=== PATIENT | male | born 1985 | race Caucasian/White ===

== ENCOUNTER 2017-08-29 23:48 | Emergency (ER) | payer OTHER ==
[~2017-08-29] VITALS: Ht 180.3 cm; Wt 95.3 kg
[2017-08-30 00:16] VITALS: BP 146/88
--- NOTE | 2017-08-30 00:22 | NUR ---
Patient ambulated to bed OF2 to be evaluated as fast track by Dr. Millard. RN evaluating patient.
--- NOTE | 2017-08-30 00:37 | NUR ---
PATIENT PRESENTS TO ED WITH C/O SORE THROAT, ETOH . PT DENIES N/V/D; SKIN IS PINK/WARM/DRY; AAOX4 WITH EVEN AND STEADY GAIT; LUNGS CLEAR BL; HR EVEN AND REGULAR; PT DENIES ANY FEVER, CP, SOB, OR COUGH AT THIS TIME; PATIENT STATES PAIN OF 7/10 AT THIS TIME; VSS; PATIENT POSITIONED FOR COMFORT; HOB ELEVATED; BEDRAILS UP X2; BED DOWN. ER MD MADE AWARE OF PT STATUS.
[2017-08-30] MEDS ORDERED: KETOROLAC 60 MG/2 ML VIAL IM ONE (00:55)
[2017-08-30] MEDS ORDERED: methylPREDNISolone SS 125 MG in WATER STERILE 2 ML IM ONE (00:55)
[2017-08-30] MEDS ORDERED: cefTRIAXone 1,000 MG in LIDOCAINE 1% ***ER ONLY *** 2.1 ML IM ONE (00:55)
--- NOTE | 2017-08-30 01:32 | NUR ---
Patient discharged with v/s stable. Written and verbal after care instructions given and explained. Patient alert, oriented and verbalized understanding of instructions. Ambulatory with steady gait. All questions addressed prior to discharge. ID band removed. Patient advised to follow up with PMD. Rx of CLEOCIN 300MG, PREDNISONE 20MG given. Patient educated on indication of medication including possible reaction and side effects. Opportunity to ask questions provided and answered.
[2017-08-30 01:33] VITALS: BP 132/72
== END 2017-08-30 01:32 | disposition home or self-care (01) ==
LOC: MED 23:48
DX: J03.90 Acute tonsillitis, unspecified (principal); Z71.6 Tobacco abuse counseling
CPT/HCPCS: 96372; 99284; J0696; J1885; J2001; J2930

== ENCOUNTER 2017-08-30 23:30 | Emergency (ER) | payer OTHER ==
[~2017-08-30] VITALS: Ht 180.3 cm; Wt 98.9 kg
[2017-08-30 23:38] VITALS: BP 140/90
--- NOTE | 2017-08-31 00:24 | NUR ---
32 Y/O M W/C/O SORETHROAT, FOR 2 WEEKS, LEFT WRIST PAIN, FOR 2 MONTHS, PT DENIES ANY TRAUMA NOR INJURY, PT SEEN YESTERDAY AND SENT HOME WITH ANTIBIOTICS AND PAIN MEDS BUT PT STATES HE DIDNT HAVE A RIDE TO GO FILL MEDS. NO S/S OF DISTRESS NOTED. ER, MADE AWARE.
--- NOTE | 2017-08-31 00:49 | NUR ---
PT. WENT TO XRAY
--- NOTE | 2017-08-31 00:53 | NUR ---
PT. BACK FROM XRAY
[2017-08-31] MEDS ORDERED: oxyCODONE/APAP 5/325 MG 1 TAB TAB PO ONE (02:15)
--- NOTE | 2017-08-31 02:36 | NUR ---
Patient discharged with v/s stable. Written and verbal after care instructions given and explained. Patient alert, oriented and verbalized understanding of instructions. Ambulatory with steady gait. All questions addressed prior to discharge. ID band removed. Patient advised to follow up with PMD. Rx of NORCO 5/325MG given. Patient educated on indication of medication including possible reaction and side effects. Opportunity to ask questions provided and answered.
[2017-08-31 02:37] VITALS: BP 126/81
== END 2017-08-31 02:36 | disposition home or self-care (01) ==
LOC: MED 23:30
DX: S52.502D Unspecified fracture of the lower end of left radius, subsequent encounter for closed fracture with routine healing (principal); S52.202D Unspecified fracture of shaft of left ulna, subsequent encounter for closed fracture with routine healing; J02.9 Acute pharyngitis, unspecified; X58.XXXD Exposure to other specified factors, subsequent encounter
CPT/HCPCS: 73110; 99284

== ENCOUNTER 2017-12-31 18:27 | Emergency (ER) | payer MEDICAID, OTHER ==
[~2017-12-31] VITALS: Ht 180.3 cm; Wt 100.2 kg
[2017-12-31 18:39] VITALS: BP 125/72
--- NOTE | 2017-12-31 18:44 | NUR ---
PT AMBULATED TO GABO
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
--- NOTE | 2017-12-31 18:52 | NUR ---
Patient being evaluated by physician at bedside.
[2017-12-31 19:05] VITALS: BP 125/72
--- NOTE | 2017-12-31 19:05 | NUR ---
Patient discharged with v/s stable. Written and verbal after care instructions given and explained.Patient alert, oriented and verbalized understanding of instructions. Ambulatory with steady gait. All questions addressed prior to discharge. ID band removed. Patient advised to follow up with PMD. Rx of BACTRIUM DS, MUPIROCIN 2% TOPICAL OINTMENT given. Patient educated on indication of medication including possible reaction and side effects. Opportunity to ask questions provided and answered.
== END 2017-12-31 19:05 | disposition home or self-care (01) ==
LOC: MED 18:27
DX: L01.00 Impetigo, unspecified (principal); I10 Essential (primary) hypertension
CPT/HCPCS: 99283

== ENCOUNTER 2018-01-19 10:56 | Emergency (ER) | payer MEDICAID, OTHER ==
[~2018-01-19] VITALS: Ht 180.3 cm; Wt 98.9 kg
[2018-01-19 11:01] VITALS: BP 134/79
--- NOTE | 2018-01-19 11:01 | NUR ---
generalized abd pain with n/v/d x 3 days . DENIES N/V/D; SKIN IS PINK/WARM/DRY; AAOX4 WITH EVEN AND STEADY GAIT; LUNGS CLEAR BL; HR EVEN AND REGULAR; PT DENIES ANY FEVER, CP, SOB, OR COUGH AT THIS TIME; PATIENT STATES PAIN OF 10/10 AT THIS TIME; VSS; PATIENT POSITIONED FOR COMFORT; HOB ELEVATED; BEDRAILS UP X2; BED DOWN. ER MD MADE AWARE OF PT STATUS.
--- NOTE | 2018-01-19 11:05 | NUR ---
PT AMBULATED TO BED 12
[2018-01-19] MEDS ORDERED: KETOROLAC 30 MG/ML VIAL IVP ONE (11:40)
[2018-01-19] MEDS ORDERED: NACL 0.9% 1,000 ML IV ONE (11:40)
[2018-01-19] MEDS ORDERED: ONDANSETRON 4 MG/2 ML VIAL IVP ONE (11:40)
--- NOTE | 2018-01-19 11:53 | NUR ---
PT TAKEN TO XRAY
--- NOTE | 2018-01-19 12:04 | NUR ---
PT RETURNED FROM XRAY
[2018-01-19 12:08] LABS: BASOPHILS % (AUTO) 0.6 % (0.0-2.0); EOSINOPHILS # (AUTO) 0.3 K/uL (0-0.4); EOSINOPHILS % (AUTO) 5.1 % (0.0-4.0); HEMATOCRIT 29.3 % (36-52); HEMOGLOBIN 9.1 g/dL (12.0-18.0); LYMPHOCYTES # (AUTO) 0.9 K/uL (2.0-11.5); LYMPHOCYTES % (AUTO) 16.4 % (20.5-51.1); MEAN CORPUSCULAR HEMOGLOBIN 22 pg (27-31); MEAN CORPUSCULAR HGB CONC 31 g/dL (33-37); MEAN CORPUSCULAR VOLUME 72.1 fL (80-94); MONOCYTES % (AUTO) 17.4 % (1.7-9.3); NEUTROPHILS # (AUTO) 3.5 K/uL (1.8-7.7); NEUTROPHILS % (AUTO) 60.5 % (42.2-75.2); PLATELET COUNT (AUTO) 157 K/uL (140-450); RED BLOOD CELL COUNT(AUTO) 4.05 MIL/uL (4.20-6.10); RED CELL DISTRIBUTION WIDTH 18.8 % (11.6-13.7); WHITE BLOOD COUNT (AUTO) 5.7 K/uL (4.8-10.8)
[2018-01-19 12:28] LABS: ANION GAP 14.2 (8-16); CARBON DIOXIDE 23.2 mmol/L (21-32); CHLORIDE 104 mmol/L (98-107); CREATININE 0.7 mg/dL (0.7-1.3); GFR ARICAN-AMERICAN 167 mL/min (>90); GLUCOSE 113 mg/dL (74-106); POTASSIUM 3.4 mmol/L (3.5-5.1); SODIUM SERUM 138 mmol/L (136-145); UREA NITROGEN, BLOOD 8 mg/dL (7-18)
[2018-01-19 12:44] LABS: ALBUMIN 3.5 g/dL (3.4-5.0); ASPARTATE AMINOTRANSFERASE 53 U/L (15-37); TOTAL BILIRUBIN 0.8 mg/dL (0.0-1.0)
[2018-01-19 12:45] LABS: ACETAMINOPHEN < 0.5 ug/ml (10-30); SALICYLATE < 2.8 mg/dL (2.8-20.0)
[2018-01-19] MEDS ORDERED: fentaNYL 0.05 MG/ML VIAL IVP ONE (13:10)
[2018-01-19 13:22] LABS: BARBITURATE, URINE NEG. ng/ml (NEG <=200); BENZODIAZEPINE, URINE NEG. ng/mL (NEG <=200); CANNABINOID, URINE NEG. ng/mL (NEG <=50); COCAINE, URINE NEG. ng/mL (NEG <=300); OPIATE, URINE NEG. ng/mL (NEG <=2000); PHENCYCLIDINE SCREEN,URINE NEG. ng/mL (NEG <=25)
--- NOTE | 2018-01-19 13:50 | NUR ---
PT RESTING IN BED, AT BEDSIDE. PT STATED PAIN RELIVED.
[2018-01-19 14:10] VITALS: BP 130/75
--- NOTE | 2018-01-19 14:10 | NUR ---
Patient discharged with v/s stable. Written and verbal after care instructions given and explained. Patient alert, oriented and verbalized understanding of instructions. Ambulatory with steady gait. All questions addressed prior to discharge. ID band removed. Patient advised to follow up with PMD. Rx of ZOFRAN AND TRAMADOL HYDROCHLORIDE given. Patient educated on indication of medication including possible reaction and side effects. Opportunity to ask questions provided and answered.
== END 2018-01-19 14:10 | disposition home or self-care (01) ==
LOC: MED 10:56
DX: T62.91XA Toxic effect of unspecified noxious substance eaten as food, accidental (unintentional), initial encounter (principal); F15.90 Other stimulant use, unspecified, uncomplicated; I10 Essential (primary) hypertension; Y92.89 Other specified places as the place of occurrence of the external cause
CPT/HCPCS: 36415; 74022; 80053; 80305; 83690; 85025; 96361; 96374; 96375; 99285; G0480; G0482; J1885; J2405; J7030

== ENCOUNTER 2018-02-04 09:26 | Emergency (ER) | payer OTHER ==
[~2018-02-04] VITALS: Ht 180.3 cm; Wt 107.0 kg
[2018-02-04 09:29] VITALS: BP 133/78
[2018-02-04] MEDS ORDERED: ACETAMINOPHEN EXTRA STRENGTH 500 MG TAB PO ONE (10:10)
[2018-02-04] MEDS ORDERED: NACL 0.9% 2,000 ML IV SCH (10:53)
[2018-02-04] MEDS ORDERED: KETOROLAC 15 MG/ML VIAL IVP ONE (10:55)
[2018-02-04 12:23] LABS: BASOPHILS # (AUTO) 0.1 K/uL (0.00-0.22); EOSINOPHILS % (AUTO) 0.1 % (0.0-4.0); HEMATOCRIT 26.8 % (36-52); HEMOGLOBIN 8.4 g/dL (12.0-18.0); LYMPHOCYTES # (AUTO) 0.4 K/uL (2.0-11.5); LYMPHOCYTES % (AUTO) 3.9 % (20.5-51.1); MEAN CORPUSCULAR HEMOGLOBIN 22 pg (27-31); MEAN CORPUSCULAR HGB CONC 31 g/dL (33-37); MEAN CORPUSCULAR VOLUME 71.2 fL (80-94); MONOCYTES % (AUTO) 11.3 % (1.7-9.3); NEUTROPHILS # (AUTO) 7.6 K/uL (1.8-7.7); NEUTROPHILS % (AUTO) 83.7 % (42.2-75.2); PLATELET COUNT (AUTO) 139 K/uL (140-450); RED BLOOD CELL COUNT(AUTO) 3.77 MIL/uL (4.20-6.10); RED CELL DISTRIBUTION WIDTH 19.2 % (11.6-13.7); WHITE BLOOD COUNT (AUTO) 9.1 K/uL (4.8-10.8)
[2018-02-04 12:23] LABS: APPEARANCE,URINE CLEAR (CLEAR); BILIRUBIN,URINE NEGATIVE (NEGATIVE); BLOOD, URINE NEGATIVE (NEGATIVE); COLOR,URINE YELLOW (YELLOW); LEUKOCYTE ESTERASE ,URINE NEGATIVE (NEGATIVE); NITRITE, URINE NEGATIVE (NEGATIVE); PH,URINE 8.5 (5.0-9.0); UGLUCOSE NEGATIVE (NEGATIVE)
[2018-02-04 12:29] LABS: BARBITURATE, URINE NEG. ng/ml (NEG <=200); BENZODIAZEPINE, URINE NEG. ng/mL (NEG <=200); CANNABINOID, URINE NEG. ng/mL (NEG <=50); COCAINE, URINE NEG. ng/mL (NEG <=300); OPIATE, URINE NEG. ng/mL (NEG <=2000); PHENCYCLIDINE SCREEN,URINE NEG. ng/mL (NEG <=25)
[2018-02-04 12:35] LABS: RBC,URINE NONE SEEN /HPF (0-5); WBC,URINE 0-5 (RARE) /HPF (0-5)
[2018-02-04 12:40] LABS: ANION GAP 10.8 (8-16); CARBON DIOXIDE 23.9 mmol/L (21-32); CREATININE 0.7 mg/dL (0.7-1.3); POTASSIUM 3.7 mmol/L (3.5-5.1)
[2018-02-04 12:48] LABS: ALBUMIN 3.1 g/dL (3.4-5.0); TOTAL BILIRUBIN 0.8 mg/dL (0.0-1.0)
[2018-02-04 14:25] VITALS: BP 146/74
== END 2018-02-04 14:25 | disposition home or self-care (01) ==
LOC: MED 09:26
DX: B34.9 Viral infection, unspecified (principal); D50.9 Iron deficiency anemia, unspecified; I10 Essential (primary) hypertension
CPT/HCPCS: 36415; 71045; 73610; 80053; 80305; 81001; 82550; 83540; 83605; 84484; 85025; 87040; 87086; 93005; 99285; J1885; Q0092

== ENCOUNTER 2018-02-09 10:13 | Emergency (ER) | payer OTHER ==
[~2018-02-09] VITALS: Ht 180.3 cm; Wt 106.1 kg
[2018-02-09 10:31] VITALS: BP 126/77
[2018-02-09 10:52] VITALS: BP 126/77
== END 2018-02-09 10:52 | disposition home or self-care (01) ==
LOC: MED 10:13
DX: J02.9 Acute pharyngitis, unspecified (principal); J40 Bronchitis, not specified as acute or chronic; I10 Essential (primary) hypertension
CPT/HCPCS: 99283

== ENCOUNTER 2018-02-22 16:09 | Emergency (ER) | payer OTHER ==
[~2018-02-22] VITALS: Ht 180.3 cm; Wt 106.6 kg
[2018-02-22 16:29] VITALS: BP 111/78
--- NOTE | 2018-02-22 16:34 | NUR ---
PT AMBULATES BACK TO THE LOBBY
--- NOTE | 2018-02-22 17:20 | NUR ---
PT AMBULATED TO BED 8 BY JULITO
--- NOTE | 2018-02-22 17:22 | NUR ---
pt taken to bed 8.
[2018-02-22 17:30] VITALS: BP 131/55
--- NOTE | 2018-02-22 18:05 | NUR ---
PATIENT LEFT WITHOUT BEING SEEN BY DR. KILPATRICK. PT GOT UP FROM BED AND LEFT OUT OF [facility]. MOTHER ACCOMPANIED HIM. NO FURTHER CARE PROVIDED FOR PATIENT. Addendum: 02/22/18 at 1809 by [facility] PT ELOPED FROM FACILITY.
== END 2018-02-22 18:05 | disposition left against medical advice (07) ==
LOC: MED 16:09
DX: J02.9 Acute pharyngitis, unspecified (principal); R53.1 Weakness; R05 Cough; R11.2 Nausea with vomiting, unspecified; R19.7 Diarrhea, unspecified; R13.10 Dysphagia, unspecified; I10 Essential (primary) hypertension
CPT/HCPCS: 99281

== ENCOUNTER 2018-03-30 01:39 | Emergency (ER) | payer OTHER ==
[~2018-03-30] VITALS: Ht 167.6 cm; Wt 74.8 kg
--- NOTE | 2018-03-30 01:39 | NUR ---
Patient BIBA BLS, transferred to bed 11. RN evaluating patient at bedside.
--- NOTE | 2018-03-30 01:40 | NUR ---
PATIENT PRESENTS TO ED WITH abdominal pain x3 years. PT DENIES N/V/D; SKIN IS PINK/WARM/DRY; AAOX4 WITH EVEN AND STEADY GAIT; LUNGS CLEAR BL; HR EVEN AND REGULAR; PT DENIES ANY FEVER, CP, SOB, OR COUGH AT THIS TIME; PATIENT STATES PAIN OF 9/10 AT THIS TIME; VSS; PATIENT POSITIONED FOR COMFORT; HOB ELEVATED; BEDRAILS UP X1; BED DOWN. ER MD MADE AWARE OF PT STATUS.
[2018-03-30 01:47] VITALS: BP 125/66
[2018-03-30 01:59] LABS: BASOPHILS % (AUTO) 0.5 % (0.0-2.0); EOSINOPHILS # (AUTO) 0.1 K/uL (0-0.4); EOSINOPHILS % (AUTO) 1.1 % (0.0-4.0); HEMATOCRIT 28.8 % (36-52); HEMOGLOBIN 9.1 g/dL (12.0-18.0); LYMPHOCYTES # (AUTO) 1.1 K/uL (2.0-11.5); LYMPHOCYTES % (AUTO) 24.1 % (20.5-51.1); MEAN CORPUSCULAR HEMOGLOBIN 24 pg (27-31); MEAN CORPUSCULAR HGB CONC 32 g/dL (33-37); MEAN CORPUSCULAR VOLUME 74.5 fL (80-94); MONOCYTES # (AUTO) 0.5 K/uL (0.8-1.0); MONOCYTES % (AUTO) 10.3 % (1.7-9.3); NEUTROPHILS # (AUTO) 2.9 K/uL (1.8-7.7); PLATELET COUNT (AUTO) 82 K/uL (140-450); RED BLOOD CELL COUNT(AUTO) 3.86 MIL/uL (4.20-6.10); RED CELL DISTRIBUTION WIDTH 21.2 % (11.6-13.7); WHITE BLOOD COUNT (AUTO) 4.6 K/uL (4.8-10.8)
[2018-03-30 02:09] LABS: ANION GAP 15.6 (8-16); CARBON DIOXIDE 23.7 mmol/L (21-32); CREATININE 0.8 mg/dL (0.7-1.3); POTASSIUM 3.3 mmol/L (3.5-5.1)
[2018-03-30 02:15] LABS: ALBUMIN 3.6 g/dL (3.4-5.0); TOTAL BILIRUBIN 0.9 mg/dL (0.0-1.0)
[2018-03-30] MEDS ORDERED: KETOROLAC 30 MG/ML VIAL IVP ONE (02:30)
[2018-03-30] MEDS ORDERED: KETOROLAC 60 MG/2 ML VIAL IM ONE (02:31)
[2018-03-30] MEDS ORDERED: KETOROLAC 30 MG/ML VIAL ONE (02:32)
[2018-03-30 02:49] VITALS: BP 125/66
== END 2018-03-30 02:49 | disposition home or self-care (01) ==
LOC: MED 01:39
DX: R10.13 Epigastric pain (principal); R11.2 Nausea with vomiting, unspecified; R19.7 Diarrhea, unspecified; R68.83 Chills (without fever); I10 Essential (primary) hypertension
CPT/HCPCS: 36415; 80053; 83690; 85025; 96374; 99284; J1885

== ENCOUNTER 2018-08-30 03:10 | Emergency (ER) | payer OTHER ==
[~2018-08-30] VITALS: Ht 180.3 cm; Wt 111.1 kg
[2018-08-30 03:14] VITALS: BP 140/66
--- NOTE | 2018-08-30 03:15 | NUR ---
ASSUMED CARE OF PT AT THIS TIME. C/O ABDOMINAL PAIN/CHEST PAIN W/ HEMATEMESIS, HEMATURIA, AND BLOOD IN STOOLS X 3 DAYS. PMH CIRRHOSIS, GIB, AND PANCREATITIS. AAOX4 WITH EVEN AND STEADY GAIT; PATIENT STATES PAIN OF 10/10; VSS; PATIENT POSITIONED FOR COMFORT; HOB ELEVATED; BEDRAILS UP X2; BED DOWN. ER MD MADE AWARE OF PT STATUS. WILL CONTINUE TO MONITOR.
--- NOTE | 2018-08-30 03:32 | NUR ---
ER AT BEDSIDE
[2018-08-30] MEDS ORDERED: NACL 0.9% 1,000 ML IV SCH (03:41)
[2018-08-30] MEDS ORDERED: KETOROLAC 30 MG/ML VIAL IVP ONE (03:45)
[2018-08-30] MEDS ORDERED: ONDANSETRON 4 MG/2 ML VIAL IVP ONE (03:45)
[2018-08-30 04:18] LABS: BASOPHILS % (AUTO) 0.5 % (0.0-2.0); HEMATOCRIT 33.9 % (36-52); HEMOGLOBIN 10.8 g/dL (12.0-18.0); LYMPHOCYTES # (AUTO) 0.9 K/uL (2.0-11.5); LYMPHOCYTES % (AUTO) 23.3 % (20.5-51.1); MEAN CORPUSCULAR HEMOGLOBIN 24 pg (27-31); MEAN CORPUSCULAR HGB CONC 32 g/dL (33-37); MEAN CORPUSCULAR VOLUME 74.5 fL (80-94); MONOCYTES # (AUTO) 0.4 K/uL (0.8-1.0); MONOCYTES % (AUTO) 10.8 % (1.7-9.3); NEUTROPHILS # (AUTO) 2.5 K/uL (1.8-7.7); NEUTROPHILS % (AUTO) 64.4 % (42.2-75.2); PLATELET COUNT (AUTO) 81 K/uL (140-450); RED BLOOD CELL COUNT(AUTO) 4.55 MIL/uL (4.20-6.10); RED CELL DISTRIBUTION WIDTH 17.9 % (11.6-13.7); WHITE BLOOD COUNT (AUTO) 3.9 K/uL (4.8-10.8)
[2018-08-30 04:21] LABS: ANION GAP 17.7 (8-16); CARBON DIOXIDE 24.5 mmol/L (21-32); CREATININE 0.8 mg/dL (0.7-1.3); POTASSIUM 3.2 mmol/L (3.5-5.1)
[2018-08-30 04:26] LABS: ALBUMIN 3.7 g/dL (3.4-5.0); TOTAL BILIRUBIN 1.7 mg/dL (0.0-1.0)
[2018-08-30 05:45] VITALS: BP 138/64
--- NOTE | 2018-08-30 05:45 | NUR ---
Patient discharged with v/s stable. Written and verbal after care instructions given and explained. Patient alert, oriented and verbalized understanding of instructions. Ambulatory with steady gait. All questions addressed prior to discharge. ID band removed. Patient advised to follow up with PMD. Rx of MOTRIN, ZOFRAN, AND IMODIUM given. Patient educated on indication of medication including possible reaction and side effects. Opportunity to ask questions provided and answered.
== END 2018-08-30 05:45 | disposition home or self-care (01) ==
LOC: MED 03:10
DX: R10.13 Epigastric pain (principal); R11.2 Nausea with vomiting, unspecified; R19.7 Diarrhea, unspecified; R31.9 Hematuria, unspecified; K92.1 Melena; R07.9 Chest pain, unspecified; R06.02 Shortness of breath; K21.9 Gastro-esophageal reflux disease without esophagitis; I10 Essential (primary) hypertension; F17.200 Nicotine dependence, unspecified, uncomplicated
CPT/HCPCS: 36415; 80053; 83690; 85025; 96361; 96374; 96375; 99283; J1885; J2405; J7030

== ENCOUNTER 2019-08-11 20:38 | Emergency (ER) | payer OTHER ==
[~2019-08-11] VITALS: Ht 180.3 cm; Wt 107.0 kg
[2019-08-11 20:41] VITALS: BP 135/80
--- NOTE | 2019-08-11 20:45 | NUR ---
RADHA HART FROM [facility] TO BED. HOOKED UP TO MONITOR. VSS. SIEZURE PADS IN PLACE.
--- NOTE | 2019-08-11 20:50 | NUR ---
EKG PERFORMED AT BEDSIDE
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
[2019-08-11] MEDS ORDERED: NACL 0.9% 1,000 ML IV ONE (20:54)
[2019-08-11] MEDS ORDERED: FAMOTIDINE 20 MG/2 ML VIAL IVP ONE (20:55)
[2019-08-11 21:08] LABS: BASOPHILS % (AUTO) 0.7 % (0.0-2.0); EOSINOPHILS # (AUTO) 0.1 K/uL (0-0.4); EOSINOPHILS % (AUTO) 3.4 % (0.0-4.0); HEMATOCRIT 40.4 % (36-52); HEMOGLOBIN 13.7 g/dL (12.0-18.0); LYMPHOCYTES # (AUTO) 0.8 K/uL (2.0-11.5); LYMPHOCYTES % (AUTO) 28.6 % (20.5-51.1); MEAN CORPUSCULAR HEMOGLOBIN 30 pg (27-31); MEAN CORPUSCULAR HGB CONC 34 g/dL (33-37); MEAN CORPUSCULAR VOLUME 88.6 fL (80-94); MONOCYTES # (AUTO) 0.4 K/uL (0.8-1.0); MONOCYTES % (AUTO) 12.2 % (1.7-9.3); NEUTROPHILS # (AUTO) 1.6 K/uL (1.8-7.7); NEUTROPHILS % (AUTO) 55.1 % (42.2-75.2); PLATELET COUNT (AUTO) 61 K/uL (140-450); RED BLOOD CELL COUNT(AUTO) 4.56 MIL/uL (4.20-6.10); RED CELL DISTRIBUTION WIDTH 14.3 % (11.6-13.7); WHITE BLOOD COUNT (AUTO) 2.9 K/uL (4.8-10.8)
[2019-08-11 21:19] LABS: ANION GAP 16.7 (8-16); CARBON DIOXIDE 24.6 mmol/L (21-32); CREATININE 0.7 mg/dL (0.7-1.3); POTASSIUM 3.3 mmol/L (3.5-5.1)
[2019-08-11 21:25] LABS: ALBUMIN 3.5 g/dL (3.4-5.0); CHOL/HDL RATIO 2.2 (1-4.5); TOTAL BILIRUBIN 1.3 mg/dL (0.0-1.0)
[2019-08-11] MEDS ORDERED: MORPHINE SULFATE 4 MG/ML SYR IVP ONE (22:00)
--- NOTE | 2019-08-11 22:00 | NUR ---
PT STILL C/O PAIN 04/28. DR. FROST AWARE. PT APPEARS TO BE IN NO DISTRESS AT THIS TIME. NO OTHER CHANGES FROM PREVIOUS ASSESSMENT. WILL CONTINUE TO MONITOR.
--- NOTE | 2019-08-11 22:28 | NUR ---
PT GIVEN DC PAPERWORK. IV REMOVED. PT REFUSING TO SING PAPERWORK UNTIL SPEAKS TO DOCTOR. DR. FROST AT BEDSIDE. PT EXPLAINED RESULTS AND TO STOP DRINKING. PT DX WITH GASTRITIS. PT STATES WANTS TO STAY IN BED TO REST. DR. FROST OK WITH PT RESTING UNTIL FRIEND WHO IS GIVING RIDE HOME COMES.
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
[2019-08-11 22:52] VITALS: BP 138/82
== END 2019-08-11 22:49 | disposition home or self-care (01) ==
LOC: MED 20:38
DX: K29.20 Alcoholic gastritis without bleeding (principal); K21.9 Gastro-esophageal reflux disease without esophagitis; I10 Essential (primary) hypertension
CPT/HCPCS: 36415; 80053; 80061; 82150; 83690; 85025; 93005; 96361; 96374; 96375; 99284; G0482; J2270; J3490; J7030